=== PATIENT | female | born 1975 | race Caucasian/White ===

== ENCOUNTER 2021-06-17 19:36 | Emergency (ER) | payer BC, OTHER ==
[2021-06-17] MEDS ORDERED: Diazepam 10 MG/2 ML SYRINGE ONE (20:52)
[2021-06-17] MEDS ORDERED: Ondansetron ODT 4 MG TAB ONE (21:00)
[2021-06-17] MEDS ORDERED: HYDROcodone/Acetaminophen 5/325 mg Tablet ONE (21:18)
[2021-06-17] MEDS ORDERED: Ketorolac Tromethamine 30 MG/ML VIAL ONE (22:00)
== END 2021-06-17 22:27 | disposition home or self-care (01) ==
LOC: CSHERS 19:36
DX: S39.012A Strain of muscle, fascia and tendon of lower back, initial encounter (principal); E03.9 Hypothyroidism, unspecified; X58.XXXA Exposure to other specified factors, initial encounter
CPT/HCPCS: 96372; 99283; J1885; J3360; Q0162